=== PATIENT | male | born 1980 | race Caucasian/White ===

== ENCOUNTER 2024-08-02 12:41 | Emergency (ER) | payer OTHER, SELFPAY ==
[2024-08-02 12:51] VITALS: BP 134/101
[2024-08-02 13:12] LABS: % Basophils 0.5 % (0-2); % Immature Granulocytes 0.3 % (0-0.5); % Lymphocytes 13.6 % (20.5-51.1); % Monocytes 5.1 % (1.7-9.3); % Neutrophils 79.5 % (42.2-75.2); Absolute Basophils 0.1 10^3/uL (0-0.2); Absolute Eosinophils 0.1 10^3/uL (0-0.7); Absolute Lymphocytes 1.5 10^3/uL (1.2-3.4); Absolute Monocytes 0.6 10^3/uL (0.1-0.6); Absolute Neutrophils 8.7 10^3/uL (1.4-6.5); Hematocrit 50.7 % (39.0-52.0); Hemoglobin 17.3 g/dL (13.0-18.0); Mean Corp Hgb Conc. 34.1 g/dL (33.0-37.0); Mean Corpuscular Hgb 31.6 pg (27.0-31.0); Mean Corpuscular Volume 92.5 fL (80.0-94.0); Mean Platelet Volume 8.9 fL (7.4-10.4); Nucleated Red Blood Cells % 0 % (-); Platelet Count 380 10^3/uL (130-400); Red Blood Cell Count 5.48 10^6/uL (4.70-6.10); Red Cell Dist. Width 12.3 % (11.5-14.5)
[2024-08-02 13:28] LABS: ALT (SGPT) 29 U/L (0-50); AST (SGOT) 22 U/L (17-59); Albumin 4.5 g/dl (3.5-5.0); Alkaline Phosphatase 101 U/L (38-126); Blood Urea Nitrogen 10 mg/dl (9-20); Carbon Dioxide 29 mmol/L (22-30); Chloride 96 mmol/L (98-107); Glucose 119 mg/dl (70-99); Lipase 323 U/L (23-300); Potassium 4.7 mmol/L (3.5-5.1); Sodium 133 mmol/L (135-145); Total Protein 7.9 g/dl (6.3-8.2); eGFR > 60.00
[2024-08-02 13:44] LABS: Troponin I < 0.012 ng/ml
[2024-08-02 13:46] VITALS: BP 150/105
[2024-08-02 13:49] VITALS: BMI 24.3
[2024-08-02 13:50] VITALS: BP 150/105
--- NOTE | 2024-08-02 13:51 | EDRN ---
Dr. Mcginnis currently at the [facility] bedside
--- NOTE | 2024-08-02 14:10 | ED.GENMED ---
History of Present Illness
General
Chief Complaint: Abdominal Pain
Source: patient and spouse
Time Seen by Provider: 08/02/24 13:44
History of Present Illness
History of Present Illness:
44-year-old male presents emergency department complaints of right upper quadrant pain that started approximately 7 PM. Pain is described as 'dull' with radiation to the epigastric area. The pain has been constant without exacerbating relieving
factors. He had a normal bowel movement without blood or black stool. He is mildly anorexic but denies nausea, vomiting, fever, chills, dyspnea, chest pain, urinary symptoms. He said he had mild mid back pain which is now resolved.
Past History
Past History
ED Past Medical History: None
ED Past Surgical History: None
Social History
Tobacco: Smoker
Alcohol: Occasional
Drug: None
Personal:
Living: with family
Employment: Employed
Phy Exam
Physical Exam
Physical Exam:
GENERAL: Alert , in no apparent distress
EYE: pupils equal and reactive
NECK: Supple, no significant adenopathy.
ENT: o/p clr, mmm.
CARDIAC: Regular rate and rhythm .
LUNGS: Clear breath sounds bilaterally, no acute respiratory distress, no wheezes/rales/rhonchi
ABDOMEN: Soft, mild right upper quadrant tenderness, no r/g, no cvat
NEUROLOGICAL: Alert and oriented, no focal neuro deficits
SKIN: Warm and dry, skin intact.
MUSCULOSKELETAL: No edema, well perfused.
PSYCH: Normal and appropriate interaction.
Course
Orders/Labs/Results
Orders:
Orders
08/02/24 12:55
Electrocardiogram (*1) Urgent
Reason for Study: Abdominal Pain
EKG- Treatment ONCE
08/02/24 13:01
Complete Blood Count/With Diff Urgent
Comprehensive Metabolic Panel Urgent
Lipase Urgent
Troponin I Urgent
08/02/24 13:57
US Abdomen Complete/Upper Urgent
Comment:
Reason For Exam: ruq pain
08/02/24 15:11
Ketorolac [Toradol] 15 mg IV NOW STA
08/02/24 16:13
Urinalysis Reflex To Culture Urgent
Date Specimen was Collected: 08/02/24
Time Specimen was Collected: 13:45
Abnormal Lab Results
08/02/24
13:01
WBC 11.0 H 10^3/uL
(4.8-10.8)
MCH 31.6 H pg
(27.0-31.0)
Absolute Neuts (auto) 8.7 H 10^3/uL
(1.4-6.5)
Neutrophils % 79.5 H %
(42.2-75.2)
Lymphocytes % 13.6 L %
(20.5-51.1)
Sodium 133 L mmol/L
(135-145)
Chloride 96 L mmol/L
(98-107)
Glucose 119 H mg/dl
(70-99)
Lipase 323 H U/L
(23-300)
08/02/24 13:01
08/02/24 13:01
Vital Signs
Initial and Last Documented VS:
Initial Vital Signs
Pulse Resp BP Pulse Ox
88 18 134/101 100
08/02/24 12:51 08/02/24 12:51 08/02/24 12:51 08/02/24 12:51
Last Documented Vital Signs
Temp Pulse Resp BP Pulse Ox
97.6 F 95 20 150/105 100
08/02/24 13:50 08/02/24 13:50 08/02/24 13:50 08/02/24 13:50 08/02/24 13:50
*Critical Care Note
Total Time (30-74mins, 75-104mins- exclusive of procedures): Not Applicable
Update Note
Update Note:
Patient presents to the Emergency Department with ____abdominal pain
Number and Complexity of Problems Addressed at the Encounter
� Chronic conditions affecting care:
� Acute Exacerbation and/or Progression of Chronic Illness:
� Differential Diagnosis includes: But not limited to cholelithiasis, cholecystitis, gastritis, pancreatitis, ACS, etc. etc. etc.
Amount and/or Complexity of Data to be Reviewed and Analyzed
� I performed an independent evaluation of and my interpretation is:
EKG: Read by me, normal sinus rhythm right bundle branch block, no acute ischemia
CT:
Xrays:
Laboratory Studies: Minimal white blood cell count elevation, minimal lipase elevation, LFTs unremarkable
Other:Large gallstone in gallbladder neck. No secondary findings to suggest acute cholecystitis. Limited evaluation because of contraction.
� Review of other/old records reveals:
� Clinical information was obtained by an independent historian: who is bedside
� Prescriptions/Medications Considered but not given:
� Further testing considered but not performed:
Risk of Complications and/or Morbidity or Mortality of Patient Management
� Social determinants of health affecting care:
� Discussion with other providers (PCP, Hospitalists, Consultants, etc):
� Escalation of care including admission/observation vs risk of discharge considered: Case discussed with surgery, Dr. Saqib Love, where [facility], exam, labs agrees patient candidate for outpatient evaluation and likely
scheduled gallbladder removal. All discussed with patient and . Patient's pain fully resolved. Aware of importance of follow-up and reasons return to the ER. Gallbladder noted in neck however no ductal dilatation to suggest obstruction, LFTs
within normal limits, lipase only slightly elevated, and no findings on ultrasound and/or clinically to suggest associated infection.
ED Attending Note
-
Portions of this chart may have been created with voice recognition software.� Occasional wrong word or��sound alike� substitutions may have occurred due to the inherent limitations of voice recognition software.
Discharge Plan
Departure
Patient Disposition: Home (Routine Discharge)
Date of Disposition: 08/02/24
Time of Disposition: 16:37
Patient with high blood pressure during this ER visit?: Yes
Condition: Good
Discharge Problem:
Gallstone
Instructions: Gallstones (DC), BLOOD PRESSURE
Prescriptions:
No Action
ibuprofen 600 MG tablet
600 mg PO Q6 Qty: 20 0RF
Referrals:
NONE,* [Family Provider] -
Saqib Love MD [Active] - Tomorrow
Activity Restrictions/Additional Instructions:
PLEASE GET IN CONTACT WITH THE SURGEON IN THE NEXT 1 TO 2 DAYS. IF YOU DEVELOP RECURRENT PAIN, NAUSEA, VOMITING, FEVER, CHILLS, CHEST PAIN, SHORTNESS OF, OR OTHER WORRISOME SIGNS, PLEASE RETURN TO THE ER IMMEDIATELY.
Interventions
Interventions:
*Risk Screen - Suicide Last Done: 08/02/24 12:51
*General Assessment Last Done: 08/02/24 12:51
*Neglect/Abuse Screening Last Done: 08/02/24 12:51
ED- Fall Risk Assessment Last Done: 08/02/24 13:50
*ED COVID-19 Vaccine History Last Done: 08/02/24 13:50
VT-Zeihuy-Amtgpqvjrh Assessment Last Done: 08/02/24 13:50
Discharge Date and Time
Print Language: MAURITIAN
[2024-08-02] MEDS: TORADOL 15 MG IV (15:13)
[2024-08-02 16:49] VITALS: BP 142/92
[2024-08-02 17:52] LABS: Urine Albumin Negative (Neg - Trace); Urine Bilirubin Negative (Negative); Urine Character Clear (Clear); Urine Color Yellow; Urine Glucose Negative (Negative); Urine Ketone Negative (Negative); Urine Leukocyte Negative (Negative); Urine Nitrite Negative (Negative); Urine Occult Blood Negative (Negative); Urine Urobilinogen Negative (Neg - 1+)
== END 2024-08-02 16:50 | disposition home or self-care (01) ==
LOC: EMR 12:41
PROVIDERS: Emergency Medicine; Physician Assistant; EMERGENCY PHYSICIAN Emergency Medicine
DX: K80.20 Calculus of gallbladder without cholecystitis without obstruction (principal); R03.0 Elevated blood-pressure reading, without diagnosis of hypertension; F17.200 Nicotine dependence, unspecified, uncomplicated
CPT/HCPCS: 99285; 96374; 76700; 80053; 81003; 83690; 84484; 85025; 93005

== ENCOUNTER 2024-08-12 06:22 | Day surgery (SDC) | payer OTHER, SELFPAY ==
[2024-08-12] VITALS (9 sets, daily range): BP systolic 116–145; BP diastolic 82–95; BMI 23.5
[2024-08-12] MEDS: TYLENOL 1000 MG PO (11:22)
[2024-08-12] MEDS: NORMOSOL-R/PLASMALYTE-A 1000 IV (11:34)
--- NOTE | 2024-08-12 12:07 | W.SUR.PREOP ---
Pre-Operative Surgical Note
-
I have examined this patient prior to the performance of the scheduled procedure.
The patient's condition is unchanged from the time of the current History and
Physical and the patient is able to undergo the scheduled procedure.
--- NOTE | 2024-08-12 14:28 | W.IMMPOSTOP ---
Surgical Immed Post Op Note
-
Primary Surgeon: Saqib Love MD
Assisting Surgeon: None
Pre-op Diagnosis: Biliary colic
Post-op Diagnosis: Chronic cholecystitis
Procedure Performed: Laparoscopic cholecystectomy with cholangiogram
Anesthesia Type: General
Specimen / Cultures: Gallbladder and contents
Estimated Blood Loss: 11 cc
Complications: None
Operative Findings: Chronically inflamed gallbladder with severely scarred and cystic triangle as well as dense adhesions between the lateral mid body of the gallbladder to the periduodenal fat. The latter was lysed using blunt and sharp
dissection. There was a small bleeder from the periduodenal fat that was clipped with a 5 mm titanium clip. His epigastric 5 mm port was upsized to a 12 so that a 4 x 4 could be passed easily anticipating possible spillage of bile given the
morphology of the gallbladder. The critical view of safety was obtained and a cholangiogram was performed which demonstrated thin but otherwise normal biliary ducts and no filling defects with brisk flow of contrast into the duodenum. The
gallbladder was then dissected off of the liver without any spillage of bile or stones. We then had anesthesia insufflate the stomach with air using an OG tube while compressing distally to D1 and flooded the right upper quadrant with saline. This
leak test was negative.
--- NOTE | 2024-08-12 14:34 | OR.RPT ---
Operative Report
Operative Report
Patient Name: Romaine Yang
: 1980
Date of Operation: 08/12/2024
Preoperative Diagnosis: Biliary colic
Postoperative Diagnosis: Chronic cholecystitis
Procedure(s):
Laparoscopic Cholecystectomy with Cholangiogram
Surgeon(s):
Dr. Love
Gas Cutting Machine Operator(s):
FRANKLIN Harrington
Anesthesia: General
Estimated Blood Loss: 11 cc
Urine Output: None
Drains/Lines/Implants: None
Specimens:
1. Gallbladder and contents
HPI/Surgical Indications:
This is a 44-year-old male who presents with chronic intermittent postprandial right upper quadrant abdominal pain. Exam, labs and imaging are consistent with symptomatic cholelithiasis. Risks/Benefits/Alternatives were discussed at length, and the
patient agreed to proceed with surgery.
Operative Findings: Chronically inflamed gallbladder with severely scarred and cystic triangle as well as dense adhesions between the lateral mid body of the gallbladder to the periduodenal fat. The latter was lysed using blunt and sharp
dissection. There was a small bleeder from the periduodenal fat that was clipped with a 5 mm titanium clip. His epigastric 5 mm port was upsized to a 12 so that a 4 x 4 could be passed easily anticipating possible spillage of bile given the
morphology of the gallbladder. The critical view of safety was obtained and a cholangiogram was performed which demonstrated thin but otherwise normal biliary ducts and no filling defects with brisk flow of contrast into the duodenum. The
gallbladder was then dissected off of the liver without any spillage of bile or stones. We then had anesthesia insufflate the stomach with air using an OG tube while compressing distally to D1 and flooded the right upper quadrant with saline. This
leak test was negative.
Procedure Description:
The patient was brought to the Operating Room and placed in the supine position with one arm tucked. Following uneventful induction of general endotracheal anesthesia, an orogastric tube was placed. The abdomen was prepped and draped in the usual
sterile fashion. A timeout was performed confirming the procedure, consent, and that IV antibiotics were infused and sequential compression devices were confirmed to be on. The abdomen was entered using an infraumbilical open Rosette technique with
a 12 mm balloon-tipped trocar. Pneumoperitoneum to 15 mmHg pressure was obtained without difficulty and we confirmed that no injury had occurred during our entry. The patient was positioned in reverse Trendelenberg and rotated with the right side
up slightly. Three (3) 5mm trocars were then placed along the right subcostal margin. Somewhat surprisingly, the gallbladder was noted to be fairly distended and inflamed there initially some flimsy adhesions to the surrounding tissues which were
lysed with blunt dissection however laterally about care home up the body of the gallbladder there was dense adhesions to the periduodenal fat underlying it in the area of D1/D2. These were carefully lysed with combination of blunt and sharp
dissection avoiding electrocautery. There was some bleeding from the periduodenal fat which stopped with a 5 mm titanium clip. There were additional flimsy adhesions to the duodenal bulb that were lysed with sharp dissection. Anticipating a TEP
dissection the epigastric 5 mm port was upsized to a 12 mm port and a 4 x 4 Ray-Luisito was inserted into the abdomen. A locking grasping forceps was placed on the fundus of the gallbladder where it was then retracted cephalad and to the right. Using
appropriate grasping instruments, the peritoneum overlying the triangle of Calot was incised and extended superiorly on both the anterior and posterior gallbladder vinson. The infundibulum was dissected off the cystic plate. The cystic triangle,
which was densely scarred was dissected until a critical view of safety was achieved. The cystic artery was medialized, dissected and controlled with 2 proximal clips and 1 distal. The cystic duct/gallbladder junction in turn was identified,
dissected circumferentially and a clip was placed. A ductotomy was made and a cholangiocatheter on an Street clamp was inserted into the cystic duct. A C-arm was draped and brought into the field. An intra-operative cholangiogram was performed and
was noted to have:
No filling defects in the biliary tree
No significant biliary dilation
Brisk flow of contrast into the duodenum
Normal biliary anatomy
The catheter was then removed and the cystic duct was controlled with a clip followed by a 0 PDS Endoloop. After ensuring both the artery and duct were divided, the gallbladder was freed from the liver using electrocautery. Interestingly the
posterior attachments of the gallbladder to the liver were fairly flimsy up until the fundus where he was scarred to the liver significantly. The gallbladder bed was inspected and excellent hemostasis was obtained. The gallbladder was extracted
through the umbilical 12 mm trocar site using an endocatch bag. The abdomen was again irrigated and excellent hemostasis was assured. All remaining trocars were then removed and the pneumoperitoneum was evacuated. The 12 mm trocar sites were
closed using 0 PDS suture. All trocar sites were closed at the skin level using 4-0 Monocryl followed by Dermabond. Overall, the patient tolerated the procedure well and was taken to the Recovery Room postoperatively in stable condition.
I was the attending physician and performed the procedure with assistance of the PA above. The assistance of FRANKLIN Harrington was required due to the complexity of the procedure. During the procedure Terri assisted with retraction, resection, and
closure of the wound. I was present for all portions of the case, excluding skin closure.
Saqib Love MD
[2024-08-12] MEDS: DILAUDID 0.5 MG IV (15:23)
[2024-08-12] MEDS: TYLENOL 650 MG PO (17:23)
[2024-08-12] MEDS: ROXICODONE 5 MG PO (17:26)
== END 2024-08-12 18:00 | disposition home or self-care (01) ==
LOC: SDS 06:22
PROVIDERS: ATTENDING PHYSICIAN Surgery
DX: K80.12 Calculus of gallbladder with acute and chronic cholecystitis without obstruction (principal); K80.64 Calculus of gallbladder and bile duct with chronic cholecystitis without obstruction; R10.11 Right upper quadrant pain
CPT/HCPCS: 47563; 88304; 74300; 76000; A4300